=== PATIENT | male | born 1940 | race Two or more races ===

== ENCOUNTER 2023-11-08 09:37 | Inpatient (IN) | payer OTHER ==
[~2023-11-08] VITALS: Ht 167.6 cm; Wt 68.0 kg
[2023-11-08] MEDS ORDERED: LOSARTAN POTASS50 MG (10:00)
[2023-11-08] MEDS ORDERED: SYNTHROID112 MCG (10:00)
[2023-11-08] MEDS ORDERED: TAMS0.4C (10:00)
[2023-11-08] MEDS ORDERED: MEMANTINE HCL10 MG (10:01)
[2023-11-08] MEDS ORDERED: ARICEPT5 MG (10:01)
[2023-11-08] MEDS ORDERED: METFORMIN HCL500 M3 (10:02)
--- NOTE | 2023-11-08 10:09 | NUR ---
SE RECIBE A PTE ALERTA Y ORIENTADO X3. EL MISMO REFIERE DOLOR Y ARDOR AL ORINAR. REFIERE ORINAR FRECUENTE Y EN POCAS CANTIDADES Y CON LEVE SANGRADO.
[2023-11-08] MEDS ORDERED: KETOROLAC TROMETHAMINE 60 MG VIAL IM STA (10:49)
[2023-11-08] MEDS ORDERED: CEFTRIAXONE SODIUM 2,000 MG VIAL IV STA (10:51)
[2023-11-08] MEDS ORDERED: KETOROLAC TROMETHAMINE 60 MG VIAL IM ONE (10:54)
--- NOTE | 2023-11-08 11:02 | NUR ---
SE REALIZA VENOPUNCION PARA COLECTAR MUESTRAS DE SHANT Y DEJAR VENA PERIFERAL PATENTE, SE NOTIFICA Y SE REALIZA ESTUDIO.
[2023-11-08 11:34] LABS: HEMATOCRIT 33.4 % (39.0-48.0); HEMOGLOBIN 11.4 g/dL (13-16.00); MEAN CELL VOLUME 104.8 fL (80.0-100.00); MEAN CORPUSCULAR HEMOGLOBIN 35.9 pg (27.00-32.0); MEAN CORPUSCULAR HGB CONC 34.3 g/dl (32.0-36.0); PLATELET COUNT 286 K/uL (150-450); RED BLOOD COUNT 3.19 M/uL (4.00-6.00); RED CELL DISTRIBUTION WIDTH 13.8 % (11.5-14.5)
[2023-11-08 11:56] LABS: URINE APPEARANCE Turbid; URINE BILIRRUBIN Small (NEGATIVE); URINE BLOOD Large; URINE COLOR Orange; URINE GLUCOSE Negative (NEGATIVE); URINE KETONE Trace (NEGATIVE); URINE LEUKOCYTE Moderate; URINE NITRATE Negative; URINE UROBILINOGEN 0.2 E.U./dl
[2023-11-08 12:02] LABS: URINE CAST 1.89 uL (0.0-1.40); URINE EPITHELIAL CELLS 30.9 uL (0.0-38.8); URINE WBC 304.4 uL (0.0-23.2)
[2023-11-08 12:13] LABS: CALCIUM 8.9 mg/dL (8.5-10.1); CREATININE SERUM 1.27 mg/dL (0.70-1.30); GFR 54.16; POTASSIUM 4.47 mEq/L (3.5-5.1)
[2023-11-08 12:29] LABS: URINE PROTEIN 300 (NEGATIVE); URINE RBC > 10558.9 uL (0.0-20.8)
[2023-11-08] MEDS ORDERED: DIPHENHYDRAMINE HCL 50 MG/ML VIAL 1ML IM STA (12:53)
[2023-11-08] MEDS ORDERED: METHYLPREDNISOLONE SOD SUCC 125 MG VIAL IV STA (12:53)
[2023-11-08] MEDS ORDERED: DIPHENHYDRAMINE HCL 50 MG/ML VIAL 1ML ONE (13:03)
[2023-11-08] MEDS ORDERED: METHYLPREDNISOLONE SOD SUCC 40 MG VIAL ONE (13:04)
--- NOTE | 2023-11-08 13:15 | NUR ---
PACIENTE PRESENTA REACCION ADVERSA POR MEDICAMENTO ANTERIORMENTE ADMISNISTRADO. TORADOL. SE NOTIFICA A , DA ORDEN DE ADMINISTRAR SOLUMEDROL Y BENADRYL, SE ADMINISTRA EL MISMO POR IV PUMP.
[2023-11-08 14:02] LABS: INR 1.02; PARTIAL THROMBOPLASTIN TIME 30.8 SECONDS (22.0-34.0); PROTHROMBIN TIME 10.7 SECONDS (9.0-11.5)
[2023-11-08 14:27] LABS: ALKALINE PHOSPHATASE 73 U/L (50-136); ALT/SGPT 22 U/L (12-78); AST/SGOT 25 U/L (15-37); BILIRUBIN TOTAL 0.29 mg/dL (0.3-1.2); TOTAL PROTEIN 6.9 gm/dL (6.4-8.2)
[2023-11-08 14:30] LABS: BILIRUBIN,CONJUGATED < 0.10 mg/dL (0.0-0.2); BILIRUBIN,UNCONJUGATED 0.19 mg/dL (0.0-0.6)
--- NOTE | 2023-11-08 15:48 | NUR ---
PTE ALERTA Y ORIENTADO X 3 ESFERAS EN EVANGELIST CON BARANDAS ELEVADAS,EN COMPANIA DE FAMILIAR,AREA DE VENOPUNCION PATENTE Y KEYLA DE EDEMA CON HL.PENDIENTE A EVALUACION DE DR BALDWIN.
[2023-11-08] MEDS ORDERED: TAMSULOSIN HCL 0.4 MG CAP PO SCH (20:01)
[2023-11-08] MEDS ORDERED: 0.9 % SODIUM CHLORIDE 80 ML IV SCH (20:15)
[2023-11-08] MEDS ORDERED: MORPHINE SULFATE 4 MG/ML CARTRIDGE IV SCH (21:00)
[2023-11-08] MEDS ORDERED: PIPERACILLIN/TAZOBACTAM SODIUM 3.375 GM VIAL IV SCH (21:00)
[2023-11-08] MEDS ORDERED: TAMSULOSIN HCL 0.4 MG CAP PO ONE (21:16)
[2023-11-08] MEDS ORDERED: PIPERACILLIN/TAZOBACTAM SODIUM 3.375 GM VIAL IV ONE (21:17)
[2023-11-09] MEDS ORDERED: OXYBUTYNIN CHLORIDE 5 MG TABLET PO STA (08:45)
[2023-11-09] MEDS ORDERED: DIPHENHYDRAMINE HCL 50 MG CAPSULE PO STA (08:46)
[2023-11-09] MEDS ORDERED: MEMANTINE HCL 10 MG TABLET PO SCH (09:00)
[2023-11-09] MEDS ORDERED: LOSARTAN POTASSIUM 50 MG TABLET PO SCH (09:00)
[2023-11-09] MEDS ORDERED: LEVOTHYROXINE SODIUM 112 MCG TABLET PO SCH (09:00)
[2023-11-09] MEDS ORDERED: CHLORHEXIDINE GLUCONATE 120 ML BOTTLE TOP ONE (10:19)
[2023-11-09] MEDS ORDERED: MORPHINE SULFATE 2 MG/ML CARTRIDGE IV SCH (13:00)
[2023-11-09] MEDS ORDERED: PIPERACILLIN/TAZOBACTAM SODIUM 3.375 GM VIAL IV ONE (15:35)
[2023-11-09 17:13] LABS: CALCIUM 7.7 mg/dL (8.5-10.1); CREATININE SERUM 0.97 mg/dL (0.70-1.30); GFR 73.91; POTASSIUM 4.27 mEq/L (3.5-5.1)
[2023-11-10] MEDS ORDERED: LEVOTHYROXINE SODIUM 112 MCG TABLET PO SCH (06:00)
[2023-11-10 06:26] LABS: HEMATOCRIT 30.5 % (39.0-48.0); HEMOGLOBIN 10.7 g/dL (13-16.00); MEAN CELL VOLUME 103.5 fL (80.0-100.00); MEAN CORPUSCULAR HEMOGLOBIN 36.3 pg (27.00-32.0); PLATELET COUNT 265 K/uL (150-450); RED BLOOD COUNT 2.95 M/uL (4.00-6.00); RED CELL DISTRIBUTION WIDTH 14.2 % (11.5-14.5)
[2023-11-10 06:54] LABS: ALBUMIN 2.7 gm/dL (3.4-5.0); BILIRUBIN TOTAL 0.39 mg/dL (0.3-1.2); CALCIUM 7.7 mg/dL (8.5-10.1); CREATININE SERUM 1.02 mg/dL (0.70-1.30); GFR 69.75; GLOBULINA 3.3 G/DL (2.4-3.5); MAGNESIUM 2.5 mg/dL (1.8-2.4); PHOSPHOROUS 3.5 mg/dL (2.5-4.9); POTASSIUM 5.01 mEq/L (3.5-5.1)
[2023-11-10] MEDS ORDERED: DEXTROSE 50 % IN WATER 0.5 G/ML DISP.SYRIN IV PRN (07:00)
[2023-11-10] MEDS ORDERED: INSULIN LISPRO 1,000 UNIT/10 ML UNITS SUBCUTANEO PRN (07:00)
[2023-11-10] MEDS ORDERED: MAGNESIUM HYDROXIDE 30 ML BLIST.PACK PO NR (09:45)
[2023-11-10] MEDS ORDERED: VITAMIN B COMPLEX 1 EACH PO SCH (17:00)
[2023-11-10] MEDS ORDERED: Cyanocobalamin/Mecobalamin 1 TAB.SL SL SCH (17:00)
[2023-11-11] MEDS ORDERED: ACETAMINOPHEN 500 MG GEL..CAP PO ONE (14:15)
[2023-11-11] MEDS ORDERED: AMOX-CLAV 875-1 EAC1 PO (16:02)
== END 2023-11-11 17:42 | disposition home or self-care (01) | DRG 670 ==
LOC: ER 09:38 → MEDI 20:34
PROVIDERS: General Practice; Internal Medicine; Student in an Organized Health Care Education/Training Program; Urology; ADMIT Internal Medicine; ATTEND Internal Medicine
PROC: BW21ZZZ Computerized Tomography (CT Scan) of Abdomen and Pelvis (ICD-10-PCS; 2023-11-08)
PROC: 0TBB8ZX Excision of Bladder, Via Natural or Artificial Opening Endoscopic, Diagnostic (ICD-10-PCS; principal; 2023-11-09 10:00)
DX: D49.4 Neoplasm of unspecified behavior of bladder (principal); R31.0 Gross hematuria; N40.1 Benign prostatic hyperplasia with lower urinary tract symptoms; R39.15 Urgency of urination; R35.0 Frequency of micturition; E11.9 Type 2 diabetes mellitus without complications; I10 Essential (primary) hypertension; G30.8 Other Alzheimer's disease; F02.80 Dementia in other diseases classified elsewhere, unspecified severity, without behavioral disturbance, psychotic disturbance, mood disturbance, and anxiety; D52.0 Dietary folate deficiency anemia; Z79.84 Long term (current) use of oral hypoglycemic drugs

== ENCOUNTER 2024-01-06 11:27 | Emergency (ER) | payer OTHER ==
[~2024-01-06] VITALS: Ht 165.1 cm; Wt 64.0 kg
[~2024-01-06 11:27] MED LIST: AMOX-CLAV 875-1 EAC1 PO; ARICEPT5 MG; LOSARTAN POTASS50 MG; MEMANTINE HCL10 MG; METFORMIN HCL500 M3; SYNTHROID112 MCG; TAMS0.4C
[2024-01-06 12:50] LABS: HEMOGLOBIN 9.7 g/dL (13-16.00); MEAN CELL VOLUME 105.3 fL (80.0-100.00); MEAN CORPUSCULAR HEMOGLOBIN 35.3 pg (27.00-32.0); MEAN CORPUSCULAR HGB CONC 33.5 g/dl (32.0-36.0); PLATELET COUNT 182 K/uL (150-450); RED BLOOD COUNT 2.76 M/uL (4.00-6.00); RED CELL DISTRIBUTION WIDTH 16.5 % (11.5-14.5)
[2024-01-06 13:00] LABS: PH,URINE 6.5 (5.0-8.0); URINE APPEARANCE Turbid; URINE BILIRRUBIN Small (NEGATIVE); URINE BLOOD Large; URINE COLOR Orange; URINE GLUCOSE Negative (NEGATIVE); URINE KETONE Negative (NEGATIVE); URINE LEUKOCYTE Moderate; URINE NITRATE Negative; URINE UROBILINOGEN 0.2 E.U./dl
[2024-01-06 13:05] LABS: URINE BACTERIA 380.5 uL (0.0-1933); URINE EPITHELIAL CELLS 29.3 uL (0.0-38.8); URINE RBC 9329.4 uL (0.0-20.8); URINE WBC 200.7 uL (0.0-23.2)
[2024-01-06 13:35] LABS: URINE PROTEIN 300 (NEGATIVE)
== END 2024-01-06 14:13 | disposition home or self-care (01) ==
LOC: ER 11:28
PROVIDERS: Emergency Medicine
DX: R33.9 Retention of urine, unspecified (principal); E11.9 Type 2 diabetes mellitus without complications; Z79.84 Long term (current) use of oral hypoglycemic drugs; I10 Essential (primary) hypertension; E03.9 Hypothyroidism, unspecified; Z85.51 Personal history of malignant neoplasm of bladder